=== PATIENT | female | born 1975 | race Caucasian/White ===

== ENCOUNTER 2016-12-11 15:40 | Emergency (ER) | payer OTHER ==
[~2016-12-11] VITALS: Ht 180.3 cm; Wt 90.9 kg
[2016-12-11 15:43] VITALS: BP 144/89; PULSE 92; RESP 16; O2SAT 98
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
[2016-12-11] MEDS ORDERED: Ketorolac 30 mg/mL 2 mL Inj IM ONE (17:35)
[2016-12-11 18:03] LABS: BASOPHILS % (AUTO) 0.3 % (0-3); EOSINOPHILS % (AUTO) 1.3 % (0-5); MONOCYTES % (AUTO) 5.3 % (4-12); Mean Corpuscular Hemoglobin 31.6 pg (27.0-35.0); Mean Corpuscular Volume 96.6 fL (81-100); NEUTROPHILS % (AUTO) 69.3 % (40-74); Platelet Count 386 bil/L (150-400)
[2016-12-11 18:29] LABS: APPEARANCE,URINE HAZY (CLEAR,HAZY); COLOR,URINE YELLOW (YELLOW); OCCULT BLOOD,URINE TRACE (NEGATIVE); PH,URINE 5.5 (5.0-8.0); UROBILINOGEN,URINE NORMAL (NORMAL)
[2016-12-11 20:22] VITALS: BP 120/73; PULSE 77; RESP 18; O2SAT 97
[2016-12-11] MEDS ORDERED: HYDR-656 PO (21:42)
[2016-12-11] MEDS ORDERED: SULF1TAB7 PO (21:42)
[2016-12-11 22:06] VITALS: BP 120/73; PULSE 80; RESP 18; O2SAT 97
== END 2016-12-11 22:07 | disposition home or self-care (01) ==
LOC: SED 15:40
DX: R45.851 Suicidal ideations (principal); N30.00 Acute cystitis without hematuria; B95.1 Streptococcus, group B, as the cause of diseases classified elsewhere; Z91.5 Personal history of self-harm; Z88.5 Allergy status to narcotic agent
CPT/HCPCS: 36415; 81000; 82075; 84443; 85025; 87086; 87147; 96372; 99284; J1885; Q0177